=== PATIENT | male | born 1955 | race Caucasian/White ===

== ENCOUNTER 2016-09-30 16:12 | Emergency (ER) | payer OTHER ==
[2016-09-30 16:20] VITALS: BP 142/87
[2016-09-30] MEDS ORDERED: LIDOCAINE 1% 50 ML MDV SUBQ STA (16:49)
[2016-09-30] MEDS ORDERED: LIDOCAINE 1% 2 ML VIAL ONE (16:53)
--- NOTE | 2016-09-30 17:27 | ED Physician Documentation ---
PD HPI UPPER EXT INJURY - Stated complaint Stated Complaint: LT HAND LAC - Chief complaint Chief Complaint: Laceration - History obtained from History obtained from: Patient, Family - History of Present Illness Location: Left, Hand, Finger (3rd, 4th, 5th digits) Type of injury: Laceration Where injury occurred: Home Timing - onset: How many hours ago (1) Timing - duration: Hours (1) Timing - details: Abrupt onset Pain level max: 3 Pain level now: 1 Improved by: Rest Worsened by: Moving, Palpating Associated symptoms: No: Weakness, Numbness, Tingling, Swelling Contributing factors: No: Anticoagulated Similar symptoms before: Has not had sx before Recently seen: Not recently seen - Additonal information Additional information: unknown last Td. Pt is left handed. Cut on a lawnmower blade. Lawnmower was not running Review of Systems Neurologic: denies: Focal weakness, Numbness PD PAST MEDICAL HISTORY - Past Medical History Past Medical History: Yes Cardiovascular: Hypertension, High cholesterol Respiratory: Sleep apnea Endocrine/Autoimmune: Type 2 diabetes GI: None : None HEENT: None Psych: None Musculoskeletal: None Derm: None - Past Surgical History Past Surgical History: Yes General: Appendectomy Ortho: Other HEENT: Tonsil/Adenoidectomy - Present Medications Home Medications: Ambulatory Orders Medication Instructions Recorded Confirmed Aspirin [Josseline Chewable Aspirin] 81 mg PO DAILY 06/23/14 09/30/16 Insulin Glargine,Hum.rec.anlog 30 units SQ BID 06/23/14 09/30/16 [Lantus] Lisinopril 20 mg PO DAILY 06/23/14 09/30/16 metFORMIN [Glucophage] 1,000 mg PO BID 06/23/14 09/30/16 Atorvastatin [Lipitor] 80 mg PO DAILY 07/07/15 09/30/16 - Allergies Allergies/Adverse Reactions: Allergies Allergy/AdvReac Type Severity Reaction Status Date / Time No Known Drug Allergies Allergy Verified 09/30/16 16:20 - Social History Does the pt smoke?: No Smoking Status: Never smoker Does the pt drink ETOH?: No Does the pt have substance abuse?: No - Immunizations Immunizations are current?: No Immunizations: TDAP >10years/unknown PD ED PE NORMAL - Vitals Vital signs reviewed: Yes - General General: Alert and oriented X 3, No acute distress - HEENT HEENT: Moist mucous membranes - Derm Derm: Warm and dry - Extremities Extremities: Other (L hand - 3 lacerations to the 3rd, 4th, 5th digits. Middle phalanx. palmar aspect. NVI. 4th and 5th digits superficial laceartions. 3rd digit is 1.5cm in length, subcutaneous. tendon intact.) - Neuro Neuro: Alert and oriented X 3 - Psych Psych: Normal mood, Normal affect Results - Vitals Vitals: Vital Signs - 24 hr 09/30/16 16:18 Temperature 37.2 C Heart Rate 89 Respiratory 18 Rate Blood Pressure 142/87 H O2 Saturation 96 Oxygen O2 Source Room air Procedures - Laceration (location) L 3rd digit Length in cm: 1.5 Wound type: Linear, Into subcut fat, Clean Neurovascular status: Sensory intact, Motor intact, Vascular intact Tendon involvement: Tendon intact. No: Tendon Injury Anesthesia: Lidocaine 1% (transthecal block) Wound Preparation: Irrigated copiously NS, Wound explored, To the base. No: FB identified, FB removed Skin layer closure: Nylon, Interrupted, Size #-0 - enter number (4), Sutures - enter # (2) Other: Patient tolerated well, No complications, Neurovascular intact, Dressing applied, Tetanus booster given (tdap) Complexity: Simple PD MEDICAL DECISION MAKING - ED course Complexity details: re-evaluated patient, considered differential, d/w patient, d/w family ED course: Patient with a laceration to the left hand. Repaired. Tolerated well. Warnings of infection and instructions on wound care given at bedside. Also counseled on how to minimize scarring. Tdap given. Patient counseled regarding signs and symptoms for which I believe and urgent re-evaluation would be necessary. Patient with good understanding of and agreement to plan and is comfortable going home at this time This document was made in part using voice recognition software. While efforts are made to proofread this document, sound alike and grammatical errors may occur. Departure - Departure Disposition: 01 Home, Self Care Clinical Impression: Laceration of finger Qualifiers: Encounter type: initial encounter Qualified Code(s): S61.219A - Laceration without foreign body of unspecified finger without damage to nail, initial encounter Condition: Good Instructions: ED Laceration Hand Follow-Up: Caro Barr [facility] [Primary Care Provider] - Within 1 week Comments: Return if you worsen. The stiches should be removed in 10-14 days with your doctor. Discharge Date/Time: 09/30/16 17:35
== END 2016-09-30 17:35 | disposition home or self-care (01) ==
LOC: ED 16:12
DX: S61.213A Laceration without foreign body of left middle finger without damage to nail, initial encounter (principal); S61.215A Laceration without foreign body of left ring finger without damage to nail, initial encounter; S61.217A Laceration without foreign body of left little finger without damage to nail, initial encounter; W28.XXXA Contact with powered lawn mower, initial encounter; I10 Essential (primary) hypertension; E78.00 Pure hypercholesterolemia, unspecified; E11.9 Type 2 diabetes mellitus without complications; Z79.4 Long term (current) use of insulin; Z79.82 Long term (current) use of aspirin
CPT/HCPCS: 12001; 99283

== ENCOUNTER 2017-12-05 18:47 | Emergency (ER) | payer OTHER ==
--- NOTE | 2017-12-05 20:10 | ED Physician Documentation ---
History of Present Illness - Stated complaint Stated Complaint: DIZZINESS - Chief complaint Chief Complaint: Neuro - History obtained from History obtained from: Patient - History of Present Illness Timing: How many days ago (5) Improved by: rest/laying still Worsened by: movement of head, particularly to either side (turning) - Additonal information Additional information: Patient has two complaints. For the past five days, he has had dizziness that is distinctly worse when turning his head in either direction, associated with nausea but no vomiting. He also has a few days of episodic of abdominal cramping and vague discomfort around umbilicus. Review of Systems Constitutional: reports: Reviewed and negative Eyes: reports: Reviewed and negative Ears: reports: Reviewed and negative Nose: reports: Reviewed and negative Throat: reports: Reviewed and negative Cardiac: reports: Reviewed and negative Respiratory: reports: Reviewed and negative GI: reports: Abdominal Pain, Nausea, Constipation. denies: Vomiting : denies: Dysuria, Frequency PD PAST MEDICAL HISTORY - Past Medical History Cardiovascular: Hypertension, High cholesterol Respiratory: Sleep apnea Endocrine/Autoimmune: Type 2 diabetes GI: None : None HEENT: None Psych: None Musculoskeletal: None Derm: None - Past Surgical History Past Surgical History: Yes General: Appendectomy Ortho: Other HEENT: Tonsil/Adenoidectomy - Present Medications Home Medications: Ambulatory Orders Medication Instructions Recorded Confirmed Aspirin [Josseline Chewable Aspirin] 81 mg PO DAILY 06/23/14 09/30/16 Insulin Glargine,Hum.rec.anlog 30 units SQ BID 06/23/14 09/30/16 [Lantus] Lisinopril 20 mg PO DAILY 06/23/14 09/30/16 metFORMIN [Glucophage] 1,000 mg PO BID 06/23/14 09/30/16 Atorvastatin [Lipitor] 80 mg PO DAILY 07/07/15 09/30/16 Meclizine [Antivert] 25 mg PO Q6H PRN #20 tablet 12/05/17 Ondansetron Odt [Zofran] 4 mg TL Q6H PRN #20 tablet 12/05/17 diazePAM [Diazepam] 5 mg PO TID PRN #20 tablet 12/05/17 - Allergies Allergies/Adverse Reactions: Allergies Allergy/AdvReac Type Severity Reaction Status Date / Time No Known Drug Allergies Allergy Verified 09/30/16 16:20 - Social History Does the pt smoke?: No Smoking Status: Never smoker Does the pt drink ETOH?: No Does the pt have substance abuse?: No - Immunizations Immunizations are current?: No Immunizations: TDAP >10years/unknown PD ED PE NORMAL - Vitals Vital signs reviewed: Yes - General General: Alert and oriented X 3, No acute distress, Well developed/nourished - HEENT HEENT: PERRL, EOMI, Other (nystagmus with left lateral gaze) - Neck Neck: Supple, no meningeal sign - Cardiac Cardiac: RRR, No murmur - Respiratory Respiratory: No respiratory distress, Clear bilaterally - Abdomen Abdomen: Normal bowel sounds, Soft, Non tender, Non distended - Extremities Extremities: No edema - Neuro Neuro: Alert and oriented X 3, 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, No motor deficit, No sensory deficit, Normal speech Eye Opening: Spontaneous Motor: Obeys Commands Verbal: Oriented GCS Score: 15 Results - Vitals Vitals: Oxygen O2 Source Room air - EKG (time done) No standard instances Rate: Rate (enter#) (61) Rhythm: NSR [place]: Normal Intervals: Normal [place] QRS: Normal Ischemia: Normal ST segments - Labs Labs: Laboratory Tests 12/05/17 12/05/17 12/05/17 19:12 20:40 20:40 WBC 5.7 RBC 3.86 L Hgb 11.2 L Hct 33.4 L MCV 86.7 MCH 29.0 MCHC 33.5 RDW 13.3 Plt Count 235 MPV 8.0 Neut # (Auto) 3.8 Lymph # (Auto) 1.4 L [place] # (Auto) 0.4 Eos # (Auto) 0.0 Baso # (Auto) 0.0 Absolute Nucleated RBC 0.00 Nucleated RBC % 0.0 Sodium 138 Potassium 3.8 Chloride 105 Carbon Dioxide 29 Anion Gap 4.0 L BUN 14 Creatinine 0.6 Estimated GFR (MDRD) 136 Glucose 97 POC Whole Bld Glucose 103 H Calcium 9.6 Total Bilirubin 0.7 AST 28 ALT 41 Alkaline Phosphatase 82 Total Protein 7.0 Albumin 3.7 Globulin 3.3 Albumin/Globulin Ratio 1.1 Lipase 27 - Rads (name of study) abd. xrays Radiology: Prelim report reviewed, See rad report PD MEDICAL DECISION MAKING - ED course Complexity details: reviewed results, re-evaluated patient, considered differential, d/w patient - Sepsis Event Vital Signs: Oxygen O2 Source Room air Departure - Departure Disposition: 01 Home, Self Care Clinical Impression: Vertigo Constipation Qualifiers: Constipation type: unspecified constipation type Qualified Code(s): K59.00 - Constipation, unspecified Condition: Good Instructions: ED Constipation, Meclizine, ED Vertigo Unspecified Follow-Up: MUKESH WARD MD [Primary Care Provider] - Prescriptions: diazePAM [Diazepam] 5 mg PO TID PRN #20 tablet PRN Reason: Vertigo Meclizine [Antivert] 25 mg PO Q6H PRN #20 tablet PRN Reason: Vertigo Ondansetron Odt [Zofran] 4 mg TL Q6H PRN #20 tablet PRN Reason: Nausea / Vomiting Forms: Activity restrictions Discharge Date/Time: 12/05/17 22:20
[2017-12-05] MEDS ORDERED: MECLIZINE 12.5 MG TABLET PO STA (20:30)
[2017-12-05 20:53] LABS: BASOPHILS % (AUTO) 0.8 %; EOSINOPHILS % (AUTO) 0.9 %; HGB - HEMOGLOBIN 11.2 g/dL (14.0-18.0); LYMPHOCYTES # (AUTO) 1.4 10^3/uL (1.5-3.5); LYMPHOCYTES % (AUTO) 25.3 %; MEAN CORPUSCULAR HGB CONC 33.5 g/dL (32.0-36.0); MEAN CORPUSCULAR VOLUME 86.7 fL (80.0-94.0); MONOCYTES # (AUTO) 0.4 10^3/uL (0.0-1.0); MONOCYTES % (AUTO) 6.2 %; NEUTROPHILS # (AUTO) 3.8 10^3/uL (1.5-6.6); NEUTROPHILS % (AUTO) 66.8 %; PLT - PLATELET COUNT 235 10^3/uL (130-450); RED BLOOD COUNT 3.86 10^6/uL (4.70-6.10); RED CELL DISTRIBUTION WIDTH 13.3 % (12.0-15.0); WHITE BLOOD COUNT 5.7 x10^3/uL (4.8-10.8)
[2017-12-05 21:06] LABS: ALBUMIN 3.7 g/dL (3.2-5.5); ALBUMIN/GLOBULIN RATIO 1.1 (1.0-2.2); BILIRUBIN,TOTAL 0.7 mg/dL (0.2-1.0); CALCIUM 9.6 mg/dL (8.5-10.3); CREATININE 0.6 mg/dL (0.6-1.2)
--- NOTE | 2017-12-05 21:35 | XRAY Report ---
Procedure Date: 12/05/2017 Accession Number: [id number] / [id number] Procedure: XR - Abdomen Acute CPT Code: FULL RESULT: EXAM: ABDOMINAL SERIES AND PA CHEST EXAM DATE: 12/05/2017 09:17 PM. CLINICAL HISTORY: Abdominal pain, nausea and vomiting. COMPARISON: None. TECHNIQUE: 2 views abdomen and 1 view chest. FINDINGS: CHEST: Lungs/Pleura: No focal opacities. No effusion or pneumothorax. Mediastinum: Within exam limitations, cardiomediastinal contour is normal. ABDOMEN: Bowel Gas Pattern: Within normal limits. No dilated loops or abnormal fluid levels. Moderate stool in the ascending and descending colon. Free Air: None. Surgical clips in the right lower quadrant. IMPRESSION: Within normal limits. Moderate stool in the ascending and descending colon. RADIA
[2017-12-05 21:36] VITALS: BP 139/82
[2017-12-05] MEDS ORDERED: diazePAM 5 MG TABLET PO STA (21:57)
[2017-12-05] MEDS ORDERED: ONDANSETRON ODT 4 MG TABLET TL STA (21:57)
== END 2017-12-05 22:20 | disposition home or self-care (01) ==
LOC: ED 18:47
DX: K59.00 Constipation, unspecified (principal); R42 Dizziness and giddiness; I10 Essential (primary) hypertension; E11.9 Type 2 diabetes mellitus without complications; Z79.82 Long term (current) use of aspirin; Z79.4 Long term (current) use of insulin
CPT/HCPCS: 36415; 74022; 80053; 83690; 85025; 99283; A9270; Q0162

== ENCOUNTER 2017-12-31 14:25 | Outpatient (CLI) | payer OTHER ==
--- NOTE | 2018-01-01 18:23 | MRI Report ---
Reason: DIZZINESS AND GIDDINESS Procedure Date: 12/31/2017 Accession Number: [id number] / [id number] Procedure: MRI - Brain W/O CPT Code: FULL RESULT: EXAM: MRI BRAIN WITHOUT CONTRAST. EXAM DATE: 12/31/2017 04:25 PM. CLINICAL HISTORY: Dizziness and giddiness. COMPARISON: None. TECHNIQUE: Multiplanar, multisequence T1-weighted and fluid-sensitive MR sequences of the brain were performed. Sequences optimized for routine evaluation. Other: None. IV Contrast: None. FINDINGS: No cerebellar tonsillar ectopia is present. No restricted diffusion signal is identified in the brain parenchyma. Ventricles and sulci are within normal limits for the patient's age. No extra-axial fluid collection is seen. Punctate subcortical and deep white matter FLAIR hyperintensities are seen in the cerebral hemisphere white matter bilaterally. A 1.8 cm focus of FLAIR hyperintense signal seen involving the cortex and white matter of the posterior left parietal lobe. No definite volume loss is present in this region. This is best seen on image 18 of series 801. A linear focus in the inferior left cerebellum might reflect a remote ischemic event. No mass is present in either cerebellopontine angle. No soft tissue nodule is present in either internal auditory canal. The inner ear structures have a normal MRI appearance. IMPRESSION: 1. No acute CVA is present on the diffusion-weighted images. 2. The area of cortical FLAIR signal in the posterior left parietal lobe could reflect a subacute infarct in which diffusion signal has normalized. This is not particularly mass-like to suggest neoplasm. A follow-up MRI demonstrating development of volume loss in this region may be of value. 3. Small vessel ischemic change is present in the cerebral hemisphere white matter bilaterally. 4. Suspect a small remote ischemic event in the inferior left cerebellum. 5. No mass is present in either cerebellopontine angle or internal auditory canal. RADIA
== END 2017-12-31 14:26 | disposition home or self-care (01) ==
LOC: DI 14:25
PROVIDERS: ATTEND Internal Medicine
DX: R42 Dizziness and giddiness (principal)
CPT/HCPCS: 70551

== ENCOUNTER 2018-04-07 12:40 | Outpatient (CLI) | payer OTHER | END 2018-04-07 12:41 | disposition home or self-care (01) | LOC: DI 12:40 | PROVIDERS: ATTEND Internal Medicine | DX: I25.10 Atherosclerotic heart disease of native coronary artery without angina pectoris (principal) | CPT/HCPCS: 93306 ==

== ENCOUNTER 2018-10-14 18:09 | Emergency (ER) | payer OTHER ==
[2018-10-14 18:34] LABS: BASOPHILS % (AUTO) 0.3 %; EOSINOPHILS % (AUTO) 0.1 %; HGB - HEMOGLOBIN 12.8 g/dL (14.0-18.0); LYMPHOCYTES % (AUTO) 12.8 %; MEAN CORPUSCULAR HEMOGLOBIN 28.6 pg (27.0-31.0); MEAN CORPUSCULAR HGB CONC 33.1 g/dL (32.0-36.0); MEAN CORPUSCULAR VOLUME 86.4 fL (80.0-94.0); MONOCYTES # (AUTO) 0.4 10^3/uL (0.0-1.0); MONOCYTES % (AUTO) 4.7 %; NEUTROPHILS # (AUTO) 6.3 10^3/uL (1.5-6.6); NEUTROPHILS % (AUTO) 82.1 %; PLT - PLATELET COUNT 231 10^3/uL (130-450); RED BLOOD COUNT 4.49 10^6/uL (4.70-6.10); RED CELL DISTRIBUTION WIDTH 13.5 % (12.0-15.0); WHITE BLOOD COUNT 7.7 x10^3/uL (4.8-10.8)
[2018-10-14 18:37] LABS: VBG BASE EXCESS 3.7 mmol/L (-2 - +2); VBG PCO2 53.9 mmHg (41-51); VBG PH 7.368 (7.31-7.41); VBG PO2 30.5 mmHg (25-47)
[2018-10-14] MEDS ORDERED: PROMETHAZINE INJ 25 MG in SODIUM CHLORIDE 0.9% 50 ML IV STA (18:38)
[2018-10-14] MEDS ORDERED: SODIUM CHLORIDE 0.9% 1,000 ML IV ONE (18:38)
--- NOTE | 2018-10-14 18:41 | ED Physician Documentation ---
PD HPI FOCAL NEURO - Stated complaint Stated Complaint: VOMITING/DKA RULE OUT - Chief complaint Chief Complaint: Neuro - History obtained from History obtained from: Patient, Family () - History of Present Illness Timing - onset: Yesterday (This is a 63-year-old gentleman with diabetes who for many months has had recurrent vertigo. It was much worse yesterday causing vomiting. Feels like spinning and he is having difficulty focusing on his vision on things. He was unable to keep down any meclizine which has been helpful in the past. He saw his doctor today who referred him here for rule out for DKA thinking that might be the DKA that is causing the vomiting.) Review of Systems Ten Systems: 10 systems reviewed and negative Constitutional: denies: Fever, Chills Cardiac: denies: Chest pain / pressure, Palpitations Respiratory: denies: Dyspnea, Cough GI: denies: Abdominal Pain PD PAST MEDICAL HISTORY - Past Medical History Cardiovascular: Hypertension, High cholesterol Respiratory: Sleep apnea Endocrine/Autoimmune: Type 2 diabetes GI: None : None HEENT: None Psych: None Musculoskeletal: None Derm: None - Past Surgical History Past Surgical History: Yes General: Appendectomy Ortho: Other HEENT: Tonsil/Adenoidectomy - Present Medications Home Medications: Ambulatory Orders Medication Instructions Recorded Confirmed Aspirin [Josseline Chewable Aspirin] 81 mg PO DAILY 06/23/14 09/30/16 Insulin Glargine,Hum.rec.anlog 30 units SQ BID 06/23/14 09/30/16 [Lantus] Lisinopril 20 mg PO DAILY 06/23/14 09/30/16 metFORMIN [Glucophage] 1,000 mg PO BID 06/23/14 09/30/16 Atorvastatin [Lipitor] 80 mg PO DAILY 07/07/15 09/30/16 Meclizine [Antivert] 25 mg PO Q6H PRN #20 tablet 12/05/17 Ondansetron Odt [Zofran] 4 mg TL Q6H PRN #20 tablet 12/05/17 diazePAM [Diazepam] 5 mg PO TID PRN #20 tablet 12/05/17 Ondansetron Odt [Zofran] 4 mg TL Q6H PRN #10 tablet 10/14/18 - Allergies Allergies/Adverse Reactions: Allergies Allergy/AdvReac Type Severity Reaction Status Date / Time No Known Drug Allergies Allergy Verified 10/14/18 18:18 - Social History Does the pt smoke?: No Smoking Status: Never smoker Does the pt drink ETOH?: No Does the pt have substance abuse?: No - Immunizations Immunizations are current?: No Immunizations: TDAP >10years/unknown PD ED PE NORMAL - Vitals Vital signs reviewed: Yes - General General: Alert and oriented X 3, No acute distress - HEENT HEENT: PERRL, EOMI (Nystagmus on leftward gaze) - Neck Neck: Supple, no meningeal sign, No bony TTP - Cardiac Cardiac: RRR, No murmur - Respiratory Respiratory: No respiratory distress, Clear bilaterally - Abdomen Abdomen: Soft, Non tender - Back Back: No CVA TTP, No spinal TTP - Derm Derm: Normal color, Warm and dry - Extremities Extremities: No deformity, No tenderness to palpate - Neuro Neuro: Alert and oriented X 3, 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, Normal speech Eye Opening: Spontaneous Motor: Obeys Commands Verbal: Oriented GCS Score: 15 - Psych Psych: Normal mood NIHSS - Time Time: 18:35 - Level of Consciousness Level of consciousness: (0) Alert, Keenly responsive LOC Questions: (0) Answers both Q's correct LOC Commands: (0) Performs both correctly - Gaze Best Gaze: (0) Normal - Visual Visual: (0) No loss - Facial Palsy Facial Palsy: (0) Normal, symmetrical movement - Motor Arms (both separate) Motor Arm (right): (0) No drift Motor Arm (left): (0) No drift - Motor Legs (both separate) Motor Leg (right): (0) No drift Motor Leg (left): (0) No drift - Limb Ataxia Limb Ataxia: (0) Absent - Sensory Sensory: (0) Normal - Best Language Best Language: (0) No aphasia - Dysarthria Dysarthria: (0) Normal - Extinction and Inattention (formally neg Extinction and inattention: (0) No abnormality - Total Score/Results Total Score/Result: 0 Results - Vitals Vitals: Vital Signs - 24 hr 10/14/18 18:12 Temperature 37 C Heart Rate 82 Respiratory 16 Rate Blood Pressure 156/75 H O2 Saturation 100 Oxygen O2 Source Room air - Labs Labs: Laboratory Tests 10/14/18 10/14/18 10/14/18 18:16 18:30 18:30 WBC 7.7 RBC 4.49 L Hgb 12.8 L Hct 38.8 L MCV 86.4 MCH 28.6 MCHC 33.1 RDW 13.5 Plt Count 231 MPV 8.0 Neut # (Auto) 6.3 Lymph # (Auto) 1.0 L [place] # (Auto) 0.4 Eos # (Auto) 0.0 Baso # (Auto) 0.0 Absolute Nucleated RBC 0.00 Nucleated RBC % 0.1 VBG pH VBG pCO2 VBG pO2 VBG HCO3 VBG Total CO2 VBG O2 Saturation VBG Base Excess Sodium 140 Potassium 4.5 Chloride 100 L Carbon Dioxide 29 Anion Gap 11.0 BUN 18 Creatinine 0.7 Estimated GFR (MDRD) 114 Glucose 203 H POC Whole Bld Glucose 189 H Calcium 10.1 Phosphorus 3.8 Magnesium 2.2 Total Bilirubin 0.8 AST 34 ALT 57 Alkaline Phosphatase 63 Total Protein 7.8 Albumin 4.3 Globulin 3.5 Albumin/Globulin Ratio 1.2 Lipase 32 Serum Ketones NEGATIVE 10/14/18 18:30 WBC RBC Hgb Hct MCV MCH MCHC RDW Plt Count MPV Neut # (Auto) Lymph # (Auto) [place] # (Auto) Eos # (Auto) Baso # (Auto) Absolute Nucleated RBC Nucleated RBC % VBG pH 7.368 VBG pCO2 53.9 H VBG pO2 30.5 VBG HCO3 30.3 H VBG Total CO2 32.0 H VBG O2 Saturation 57.9 L VBG Base Excess 3.7 H Sodium Potassium Chloride Carbon Dioxide Anion Gap BUN Creatinine Estimated GFR (MDRD) Glucose POC Whole Bld Glucose Calcium Phosphorus Magnesium Total Bilirubin AST ALT Alkaline Phosphatase Total Protein Albumin Globulin Albumin/Globulin Ratio Lipase Serum Ketones PD MEDICAL DECISION MAKING - ED course ED course: 63-year-old gentleman with history of diabetes and recurrent vertigo presents with vertigo causing vomiting. Also prehospital concern for DKA for which there is there is no evidence of at work here. He was administered IV fluids and Phenergan followed by meclizine and Zofran with significant improvement in his vertigo and nausea. Departure - Departure Disposition: 01 Home, Self Care Clinical Impression: Vertigo Hyperglycemia due to type 2 diabetes mellitus Qualifiers: Diabetes mellitus terminal system operator insulin use: with terminal system operator use Qualified Code(s): E11.65 - Type 2 diabetes mellitus with hyperglycemia; Z79.4 - terminal system operator (current) use of insulin Condition: Good Record reviewed to determine appropriate education?: Yes Instructions: ED Vertigo Unspecified Prescriptions: Ondansetron Odt [Zofran] 4 mg TL Q6H PRN #10 tablet PRN Reason: Nausea / Vomiting Comments: Talk with your doctor about referral for an paid search analyst and vestibular physical therapy. Return for new worsening symptoms.
[2018-10-14 18:43] LABS: KETONES, SERUM (ACETEST) NEGATIVE (NEGATIVE)
[2018-10-14 18:48] LABS: ALBUMIN 4.3 g/dL (3.2-5.5); ALBUMIN/GLOBULIN RATIO 1.2 (1.0-2.2); ALKALINE PHOSPHATASE 63 IU/L (42-121); ALT ALANINE AMINOTRANSFERASE 57 IU/L (10-60); AST ASPARTATE AMINOTRANSFERASE 34 IU/L (10-42); BILIRUBIN,TOTAL 0.8 mg/dL (0.2-1.0); BUN - BLOOD UREA NITROGEN 18 mg/dL (6-20); CALCIUM 10.1 mg/dL (8.5-10.3); CARBON DIOXIDE - CO2 29 mmol/L (21-32); CHLORIDE 100 mmol/L (101-111); CREATININE 0.7 mg/dL (0.6-1.2); GFR - MDRD 114 (>89); GLUCOSE 203 mg/dL (70-100); LIPASE 32 U/L (22-51); MAGNESIUM 2.2 mg/dL (1.7-2.8); PHOSPHORUS 3.8 mg/dL (2.5-4.6); SODIUM 140 mmol/L (135-145); TOTAL PROTEIN 7.8 g/dL (6.7-8.2)
[2018-10-14] MEDS ORDERED: MECLIZINE 12.5 MG TABLET PO STA (19:44)
[2018-10-14] MEDS ORDERED: ONDANSETRON 4 MG/2 ML VIAL IVP STA (19:44)
[2018-10-14 20:46] VITALS: BP 129/80
== END 2018-10-14 20:54 | disposition home or self-care (01) ==
LOC: ED 18:09
DX: R42 Dizziness and giddiness (principal); R11.2 Nausea with vomiting, unspecified; E11.65 Type 2 diabetes mellitus with hyperglycemia; Z79.4 Long term (current) use of insulin; I10 Essential (primary) hypertension; Z79.82 Long term (current) use of aspirin
CPT/HCPCS: 36415; 80053; 82009; 82803; 83690; 83735; 84100; 85025; 96374; 96375; 99283; 99284; A9270; J7040

== ENCOUNTER 2018-11-11 14:46 | Emergency (ER) | payer OTHER ==
--- NOTE | 2018-11-11 16:27 | ED Physician Documentation ---
PD HPI BACK INJURY - Stated complaint Stated Complaint: BACK PAIN - History obtained from History obtained from: Patient - History of Present Illness Location: Lower Type of injury: Blunt / blow (He had the top part of a Hutch fall onto his left lower back and lower ribs when he was moving it as part of a job.) Where injury occurred: Work Timing - onset: How many hours ago (5 hours ago - about 10 am. He was carrying furniture and the top part of a hutch tipped over and fell onto hip lower left back, striking directly. Pain with ROM of the back and with palpation.), Today Timing - duration: Hours Timing - details: Abrupt onset, Still present Quality: Pain (mild to moderate except with certain movements.), Spasm Improved by: Rest Worsened by: Moving, Palpating Associated symptoms: No: Weakness, Numbness, Incontinent of urine Contributing factors: Work related Similar symptoms before: Has not had sx before Recently seen: Not recently seen Review of Systems Constitutional: denies: Fever, Chills, Myalgias Nose: denies: Rhinorrhea / runny nose, Congestion Throat: denies: Sore throat Cardiac: denies: Chest pain / pressure Respiratory: denies: Dyspnea, Cough GI: denies: Abdominal Pain, Nausea, Vomiting Skin: denies: Abrasion (s), Laceration (s) Musculoskeletal: reports: Back pain. denies: Neck pain Neurologic: denies: Focal weakness, Numbness PD PAST MEDICAL HISTORY - Past Medical History Cardiovascular: Hypertension, High cholesterol Respiratory: Sleep apnea Endocrine/Autoimmune: Type 2 diabetes GI: None : None HEENT: None Psych: None Musculoskeletal: None Derm: None - Past Surgical History Past Surgical History: Yes General: Appendectomy Ortho: Other HEENT: Tonsil/Adenoidectomy - Present Medications Home Medications: Ambulatory Orders Medication Instructions Recorded Confirmed Aspirin [Josseline Chewable Aspirin] 81 mg PO DAILY 06/23/14 09/30/16 Insulin Glargine,Hum.rec.anlog 30 units SQ BID 06/23/14 09/30/16 [Lantus] Lisinopril 20 mg PO DAILY 06/23/14 09/30/16 metFORMIN [Glucophage] 1,000 mg PO BID 06/23/14 09/30/16 Atorvastatin [Lipitor] 80 mg PO DAILY 07/07/15 09/30/16 Meclizine [Antivert] 25 mg PO Q6H PRN #20 tablet 12/05/17 Ondansetron Odt [Zofran] 4 mg TL Q6H PRN #20 tablet 12/05/17 diazePAM [Diazepam] 5 mg PO TID PRN #20 tablet 12/05/17 Ondansetron Odt [Zofran] 4 mg TL Q6H PRN #10 tablet 10/14/18 Acetaminophen [Tylenol] 650 mg PO Q6H PRN #30 tab 11/11/18 Methocarbamol [Robaxin] 500 mg PO Q6H PRN #20 tablet 11/11/18 Naproxen 500 mg PO BID #20 tablet 11/11/18 - Allergies Allergies/Adverse Reactions: Allergies Allergy/AdvReac Type Severity Reaction Status Date / Time No Known Drug Allergies Allergy Verified 11/11/18 15:00 - Social History Does the pt smoke?: No Smoking Status: Never smoker Does the pt drink ETOH?: No Does the pt have substance abuse?: No - Immunizations Immunizations are current?: No Immunizations: TDAP >10years/unknown PD ED PE NORMAL - Vitals Vital signs reviewed: Yes - General General: Alert and oriented X 3, No acute distress, Well developed/nourished - HEENT HEENT: Atraumatic - Neck Neck: Supple, no meningeal sign, No bony TTP, No adenopathy - Cardiac Cardiac: RRR, No murmur - Respiratory Respiratory: Clear bilaterally - Abdomen Abdomen: Soft, Non tender - Back Back: No spinal TTP, Other (tender left lateral back at thoracolumbar area, at lower ribs and lateral process area of upper lumbar. No bruising at this time. Soft tissue tenderness. ) - Derm Derm: Normal color, Warm and dry - Extremities Extremities: Normal ROM s pain - Neuro Neuro: Alert and oriented X 3, No motor deficit, No sensory deficit, Normal speech Results - Vitals Vitals: Vital Signs - 24 hr 11/11/18 11/11/18 14:58 18:43 Temperature 36.5 C Heart Rate 98 83 Respiratory 18 18 Rate Blood Pressure 192/89 H 137/92 H O2 Saturation 100 100 Oxygen O2 Source Room air - Rads (name of study) abd CT Radiology: Prelim report reviewed (no organ injury of kidney/lung. No fractures seen. ), EMP read contemporaneously, See rad report PD MEDICAL DECISION MAKING - ED course Complexity details: reviewed results, considered differential (mechanism of heavy direct blow concerning for rib/lateral process and also organ (kidney/ lower lung) injury, so got CT. ), d/w patient Departure - Departure Disposition: 01 Home, Self Care Clinical Impression: Back contusion Qualifiers: Encounter type: initial encounter Laterality: left Qualified Code(s): S20.222A - Contusion of left back wall of thorax, initial encounter Condition: Stable Record reviewed to determine appropriate education?: Yes Instructions: ED Contusion Back Follow-Up: MUKESH WARD MD [Primary Care Provider] - Prescriptions: Acetaminophen [Tylenol] 650 mg PO Q6H PRN #30 tab PRN Reason: Pain Methocarbamol [Robaxin] 500 mg PO Q6H PRN #20 tablet PRN Reason: Spasms Naproxen 500 mg PO BID #20 tablet Comments: Cool towels or ice to the area periodically tonight for swelling and then heat starting tomorrow for stiffness. No heavy lifting or push pull for 2 to 3 days. Naproxen anti-inflammatory twice daily for the next week or so. Add Tylenol if needed for pains. Add methocarbamol if needed for muscle spasms. Recheck if not better over the next several days to week. Forms: Activity restrictions Discharge Date/Time: 11/11/18 18:51
[2018-11-11] MEDS ORDERED: IBUPROFEN 600 MG TABLET PO STA (17:01)
[2018-11-11] MEDS ORDERED: ACETAMINOPHEN 325 MG TABLET PO STA (17:02)
--- NOTE | 2018-11-11 18:11 | CT Report ---
Reason: furniture piece fell onto left lower ribs/flank Procedure Date: 11/11/2018 Accession Number: [id number] / [id number] Procedure: CT - Abdomen/Pelvis WO CPT Code: FULL RESULT: EXAM: CT ABDOMEN AND PELVIS EXAM DATE: 11/11/2018 05:41 PM. CLINICAL HISTORY: Furniture piece fell onto left lower ribs/flank. COMPARISONS: None. TECHNIQUE: Routine axial helical CT imaging was performed through the abdomen and pelvis without IV contrast. Reconstructions: Coronal and sagittal. In accordance with CT protocol optimization, one or more of the following dose reduction techniques were utilized for this exam: automated exposure control, adjustment of mA and/or KV based on patient size, or use of iterative reconstructive technique. FINDINGS: Lung Bases: Unremarkable. Abdominal Organs: Noncontrast images of the abdominal organs are grossly unremarkable. Gallbladder/bile ducts: No significant abnormalities. Peritoneal Cavity: No free fluid, free air or mely adenopathy. Bowel is grossly unremarkable. Pelvic Organs: The prostate is enlarged. It measures 5.5 cm in AP diameter. No acute pelvic organ abnormalities are seen. Vasculature: Unremarkable. Other: None. IMPRESSION: Negative noncontrast CT of the abdomen and pelvis.
[2018-11-11 18:43] VITALS: BP 137/92
== END 2018-11-11 18:51 | disposition home or self-care (01) ==
LOC: ED 14:46
DX: S20.222A Contusion of left back wall of thorax, initial encounter (principal); W20.8XXA Other cause of strike by thrown, projected or falling object, initial encounter; Y93.89 Activity, other specified; Y99.0 Civilian activity done for income or pay; I10 Essential (primary) hypertension; E11.9 Type 2 diabetes mellitus without complications; Z79.4 Long term (current) use of insulin
CPT/HCPCS: 74176; 99283; 99284; A9270; 1040M

== ENCOUNTER 2019-11-15 20:05 | Emergency (ER) | payer OTHER ==
[2019-11-15 20:14] VITALS: BP 150/78
[2019-11-15] MEDS ORDERED: CLINDAMYCIN 150 MG CAPSULE PO STA (20:28)
--- NOTE | 2019-11-15 20:38 | ED Physician Documentation ---
History of Present Illness - Stated complaint Stated Complaint: LT PERALES LAC - Chief complaint Chief Complaint: Laceration - History obtained from History obtained from: Patient - History of Present Illness Timing: How many weeks ago (1.5) Pain level max: 3 Pain level now: 2 - Additonal information Additional information: Patient scraped his left perales on a wooden pallet at work. Increasing redness, swelling and drainage recently. Concerned about infection. He is diabetic and has peripheral vascular disease. Nothing makes it better or worse. No fevers. Review of Systems Constitutional: denies: Fever, Chills Respiratory: denies: Cough GI: denies: Nausea, Vomiting, Diarrhea : denies: Dysuria Musculoskeletal: denies: Neck pain, Back pain Neurologic: denies: Headache PD PAST MEDICAL HISTORY - Past Medical History Past Medical History: Yes Cardiovascular: Hypertension, High cholesterol Respiratory: Sleep apnea Endocrine/Autoimmune: Type 2 diabetes GI: None : None HEENT: None Psych: None Musculoskeletal: None Derm: None - Past Surgical History Past Surgical History: Yes General: Appendectomy Ortho: Other HEENT: Tonsil/Adenoidectomy - Present Medications Home Medications: Ambulatory Orders Medication Instructions Recorded Confirmed Aspirin [Josseline Chewable Aspirin] 81 mg PO DAILY 06/23/14 09/30/16 Insulin Glargine,Hum.rec.anlog 30 units SQ BID 06/23/14 09/30/16 [Lantus] lisinopriL [Lisinopril] 20 mg PO DAILY 06/23/14 09/30/16 metFORMIN [Glucophage] 1,000 mg PO BID 06/23/14 09/30/16 Atorvastatin [Lipitor] 80 mg PO DAILY 07/07/15 09/30/16 Meclizine [Antivert] 25 mg PO Q6H PRN #20 tablet 12/05/17 Ondansetron Odt [Zofran] 4 mg TL Q6H PRN #20 tablet 12/05/17 diazePAM [Diazepam] 5 mg PO TID PRN #20 tablet 12/05/17 Ondansetron Odt [Zofran] 4 mg TL Q6H PRN #10 tablet 10/14/18 Acetaminophen [Tylenol] 650 mg PO Q6H PRN #30 tab 11/11/18 Naproxen 500 mg PO BID #20 tablet 07/08/19 methocarbamoL [Robaxin] 500 mg PO Q6H PRN #20 tablet 11/11/18 Clindamycin HCl [Clindamycin 300MG 300 mg PO Q6H #28 capsule 11/15/19 CAP] - Allergies Allergies/Adverse Reactions: Allergies Allergy/AdvReac Type Severity Reaction Status Date / Time No Known Drug Allergies Allergy Verified 11/15/19 20:10 - Social History Does the pt smoke?: No Smoking Status: Never smoker Does the pt drink ETOH?: No Does the pt have substance abuse?: No - Immunizations Immunizations are current?: No Immunizations: TDAP >10years/unknown PD ED PE NORMAL - Vitals Vital signs reviewed: Yes - General General: Alert and oriented X 3, No acute distress - HEENT HEENT: Moist mucous membranes - Neck Neck: Supple, no meningeal sign - Cardiac Cardiac: RRR - Respiratory Respiratory: No respiratory distress, Clear bilaterally - Extremities Extremities: Other (L perales - 16 cm abrasion with surrounding erythema approximately 3 cm in all directions. No drainage. No swelling. Warmth is present.) - Neuro Neuro: Alert and oriented X 3 Results - Vitals Vitals: Vital Signs - 24 hr 11/15/19 20:10 Temperature 37 C Heart Rate 92 Respiratory 18 Rate Blood Pressure 150/78 H O2 Saturation 95 Oxygen O2 Source Room air PD MEDICAL DECISION MAKING - ED course Complexity details: reviewed results, considered differential, d/w patient, d/w family ED course: Patient with a left lower extremity cellulitis from an abrasion. We will place on clindamycin. He is well-appearing, nontoxic. Afebrile. Concern about Bactrim interacting with his lisinopril. Tetanus is up-to-date. Patient counseled that he will need to follow-up closely with his doctor. Patient counseled regarding signs and symptoms for which I believe and urgent re- evaluation would be necessary. Patient with good understanding of and agreement to plan and is comfortable going home at this time This document was made in part using voice recognition software. While efforts are made to proofread this document, sound alike and grammatical errors may occur. Departure - Departure Disposition: 01 Home, Self Care Clinical Impression: Leg abrasion, infected Qualifiers: Encounter type: initial encounter Laterality: left Qualified Code(s): S80.812A - Abrasion, left lower leg, initial encounter Cellulitis Qualifiers: Site of cellulitis: extremity Site of cellulitis of extremity: lower extremity Laterality: left Qualified Code(s): L03.116 - Cellulitis of left lower limb Condition: Good Instructions: ED Abrasion, ED Infec Skin Cellulitis Follow-Up: Your,doctor in 1 week [Other] Prescriptions: Clindamycin HCl [Clindamycin 300MG CAP] 300 mg PO Q6H #28 capsule Comments: It is importantly follow-up with your doctor within the next week for a wound check. Because of your diabetes, you may need wound care to help this heal. This could take several months to heal.
[2019-11-15] MEDS ORDERED: BACITRACIN ZINC OINT 1 PACKET TOP STA (20:41)
== END 2019-11-15 20:49 | disposition home or self-care (01) ==
LOC: ED 20:05
DX: S80.812A Abrasion, left lower leg, initial encounter (principal); L03.116 Cellulitis of left lower limb; W22.8XXA Striking against or struck by other objects, initial encounter; Y92.89 Other specified places as the place of occurrence of the external cause; Y99.0 Civilian activity done for income or pay; E11.51 Type 2 diabetes mellitus with diabetic peripheral angiopathy without gangrene; Z79.4 Long term (current) use of insulin
CPT/HCPCS: 99282; 99284; A9270; 1040M

== ENCOUNTER 2022-05-16 22:19 | Emergency (ER) | payer MEDICARE, OTHER ==
[2022-05-17] MEDS ORDERED: ONDANSETRON 4 MG/2 ML VIAL IVP STA (00:06)
--- NOTE | 2022-05-17 00:06 | ED Physician Documentation ---
PD HPI ABD PAIN - Stated complaint Stated Complaint: CONSTIPATED - Chief complaint Chief Complaint: Abd Pain - History obtained from History obtained from: Patient - History of Present Illness Timing - onset: Enter time (17:00), Today Timing - details: Abrupt onset, Constant, Waxing and waning Pain level now: 10 Quality: Pain Location: LLQ Radiation: Left flank Improved by: Other (nothing) Worsened by: Other (no exacerbating factors) Associated symptoms: Nausea, Vomiting, Constipation. No: Fever, Diarrhea Similar symptoms before: Has not had sx before Recently seen: Not recently seen - Additional information Additional information: HPI from patient. Patient is in severe pain and thus patient's , at bedside in ED, also provides some HPI/ROS information. Patient c/o sudden onset left-sided abdominal pain , began approximately 5 PM today while at home at rest. Pain is severe, waxing and waning but without apparent inciting event, exacerbating/ameliorating factors. He has nausea and vomiting that correlates with the most severe pain. He also notes that he feels he has been constipated , with last BM 2 days ago. Additionally, patient feels urge to urinate but unable to urinate more than very small amount at a time. This last symptom began subsequent to the onset of the abdominal pain. Patient denies h/o similar abdominal pain in past. Review of Systems Constitutional: denies: Fever, Chills, Sweats Cardiac: reports: Reviewed and negative Respiratory: reports: Reviewed and negative GI: reports: Abdominal Pain, Abdominal Swelling, Nausea, Vomiting, Constipation. denies: Diarrhea, Hematemesis, Bloody / black stool : reports: Unable to Void. denies: Dysuria, Frequency, Hematuria Musculoskeletal: denies: Back pain PD PAST MEDICAL HISTORY - Past Medical History Cardiovascular: Hypertension, High cholesterol Respiratory: Sleep apnea Endocrine/Autoimmune: Type 2 diabetes GI: None : None HEENT: None Psych: None Musculoskeletal: None Derm: None - Past Surgical History Past Surgical History: Yes General: Appendectomy Ortho: Other HEENT: Tonsil/Adenoidectomy - Present Medications Home Medications: Ambulatory Orders Medication Instructions Recorded Confirmed Aspirin [Josseline Chewable Aspirin] 81 mg PO DAILY 06/23/14 09/30/16 Insulin Glargine,Hum.rec.anlog 30 units SQ BID 06/23/14 09/30/16 [Lantus] lisinopriL [Lisinopril] 20 mg PO DAILY 06/23/14 09/30/16 metFORMIN [Glucophage] 1,000 mg PO BID 06/23/14 09/30/16 Atorvastatin [Lipitor] 80 mg PO DAILY 07/07/15 09/30/16 Meclizine [Antivert] 25 mg PO Q6H PRN #20 tablet 12/05/17 Ondansetron Odt [Zofran] 4 mg TL Q6H PRN #20 tablet 12/05/17 diazePAM [Diazepam] 5 mg PO TID PRN #20 tablet 12/05/17 Ondansetron Odt [Zofran] 4 mg TL Q6H PRN #10 tablet 10/14/18 Acetaminophen [Tylenol] 650 mg PO Q6H PRN #30 tab 11/11/18 Naproxen 500 mg PO BID #20 tablet 11/11/18 methocarbamoL [Robaxin] 500 mg PO Q6H PRN #20 tablet 11/11/18 Clindamycin HCl [Clindamycin 300MG 300 mg PO Q6H #28 capsule 11/15/19 CAP] - Allergies Allergies/Adverse Reactions: Allergies Allergy/AdvReac Type Severity Reaction Status Date / Time No Known Drug Allergies Allergy Verified 05/16/22 22:33 - Social History Does the pt smoke?: No Smoking Status: Never smoker Does the pt drink ETOH?: No Does the pt have substance abuse?: No - Immunizations Immunizations are current?: No Immunizations: TDAP >10years/unknown PD ED PE NORMAL - Vitals Vital signs reviewed: Yes - General General: Alert and oriented X 3, Well developed/nourished, Other (obvious signficant painful distress) - Neck Neck: Supple, no meningeal sign - Cardiac Cardiac: RRR - Respiratory Respiratory: No respiratory distress, Clear bilaterally - Abdomen Abdomen: Normal bowel sounds, Soft, Other (mild distention. no palpable masses/hernia. well-healed surgical scars noted. TTP is limited to left abdomen; unclear if palpation is exacerbating pain that is clearly present before and after abdominal exam (reports increased pain w/ palpation but obvious severe painful distress before/after exam)) - Back Back: No CVA TTP - Derm Derm: Normal color, Warm and dry Results - Vitals Vitals: Vital Signs - 24 hr 05/17/22 05/17/22 01:51 05:45 Heart Rate 81 70 Respiratory 16 17 Rate Blood Pressure 169/80 H 139/72 H O2 Saturation 100 98 If not protocol 2 : Oxygen Flow, liters/minute Oxygen O2 Source Nasal cannula - Labs Labs: Laboratory Tests 05/16/22 05/16/22 05/17/22 23:53 23:53 00:22 WBC 11.5 H RBC 4.41 L Hgb 12.1 L Hct 37.9 L MCV 85.9 MCH 27.4 MCHC 31.9 L RDW 12.5 Plt Count 218 MPV 10.4 Neut # (Auto) 9.9 H Lymph # (Auto) 1.0 L Meagher # (Auto) 0.5 Eos # (Auto) 0.0 Baso # (Auto) 0.1 Absolute Nucleated RBC 0.00 Nucleated RBC % 0.0 Sodium 132 L Potassium 5.0 Chloride 99 L Carbon Dioxide 21 Anion Gap 12.0 BUN 27 H Creatinine 0.9 Estimated GFR (MDRD) 84 L Glucose 222 H Calcium 9.9 Total Bilirubin 0.9 AST 33 ALT 36 Alkaline Phosphatase 92 Total Protein 7.9 Albumin 4.5 Globulin 3.4 Albumin/Globulin Ratio 1.3 Lipase 33 Urine Color YELLOW Urine Clarity CLEAR Urine pH 6.0 Ur Specific [place] <=1.005 Urine Protein TRACE Urine Glucose (UA) 250 H Urine Ketones TRACE Urine Occult Blood MODERATE H Urine Nitrite NEGATIVE Urine Bilirubin NEGATIVE Urine Urobilinogen 0.2 (NORMAL) Ur Leukocyte Esterase NEGATIVE Urine RBC 6-10 H Urine WBC 0-3 Ur Squamous Epith Cells NONE SEEN Urine Bacteria None Seen Ur Microscopic Review INDICATED Urine Culture Comments NOT INDICATED - Rads (name of study) CT A/P with IV contrast Radiology: Prelim report reviewed, Final report received, EMP read indepedently, See rad report PD Medical Decision Making - ED course Complexity details: reviewed results, re-evaluated patient, considered differential, d/w patient ED course: Tests ordered and results reviewed by me: CBC, ER abdominal panel, UA, CT A/P with IV contrast. There are no concerning findings on the CBC nor ER abdominal panel ( hyperglycemia 222, mildly elevated BUN with normal creatinine, minimal leukocytosis). UA is positive for blood on macro, RBC on micro without other contributory findings. CT A/P shows mild/moderate left hydronephrosis and hydroureter without evidence of renal calculus. Also noted is moderate amount of stool impacted in rectum. Patient given 1mg IV dilaudid and 4mg IV zofran as well as 1 liter NS IV. He reports excellent symptom relief with the medications and is in NAD on reevaluation; his pain, as well as his nausea/vomiting, did not reoccur through remainder of ED stay. Early in stay, ED RN performed bedside bladder scan , noting result of 800cc in bladder. Camacho catheter placed by ED RN and there was rapid return of 1,000cc clear yellow urine. This did not seem to correlate with significant pain relief, which subsequently was achieved rapidly after the IV dilaudid was given. I discussed results with patient. He says he has felt constipated past 1-2 days and notes that since earlier today, he feels stool at the anal verge that won't pass; this correlates with the finding on CT. He tried glycerin suppository tonight but could barely insert it due to the obstructing stool. I thus tried manual disempaction but was only able to remove a small amount of stool (even with bearing down , most of the stool was not within fingers-length for removal). He is given fleets enema and 15cc MOM to take/use once he gets home. I suspect patient's pain was predominantly, possibly entirely, from renal colic and with his complete and sustained relief of symptoms after only 1mg IV dilaudid, a likely scenario is he passed an obstructing left distal ureteral stone sometime between presentation and the CT being performed. He provided a very small amount (perhaps 30 cc) of urine before the camacho was placed, and this sample remains at bedside; I do not see any calculus in this sample. Unfortunately, the camacho bag was emptied at least once between the time it was placed and the time I reevaluated patient; on reevaluation, I do not see evidence of a calculus in the camacho collection system. In the scenario of a stone that was passed in the above timeframe, it likely would have been in the camacho bag and emptied when the bag was drained by ED RN. Camacho removed prior to d/c, as prostatic enlargement causing urinary retention is, at this point, less likely than bladder spasm from distal ureteral stone, possibly contributing factor of fecal impaction as well. Departure - Departure Disposition: 01 Home, Self Care Clinical Impression: Fecal impaction, Urinary retention Hydronephrosis Qualifiers: Hydronephrosis type: unspecified Qualified Code(s): N13.30 - Unspecified hydronephrosis Condition: Good Instructions: ED Constipation, ED Impaction Fecal Treated Comments: Your CAT scan shows swelling of the left kidney and the left ureter (the tube like connection from the kidney to the bladder). You also had some blood in the urine when it was tested by the lab. Given the combination of left-sided abdominal pain of sudden onset, and the blood detected in urine, combined with the findings on the CT scan, the most likely explanation for these findings and symptoms is a blockage of the left ureter and kidney. And the most likely cause of such a blockage would be a kidney stone. However, no kidney stone was seen on the CT scan. As we discussed, the most likely explanation would be that you had a kidney stone that was blocking when you first arrived in the emergency department, but that you passed the kidney stone before the CAT scan was performed. In such a case, the swelling of the kidney and ureter typically takes up to a day or more to resolve even after the stone has passed. The CAT scan also showed a large amount of stool that is impacted in the rectum. While this could account for abdominal pain, ice suspect this was not the primary cause of your pain but rather the blockage of the left ureter and kidney was the cause of the pain. Both the large amount of stool in the rectum as well as a kidney stone if it were near the bladder can cause spasm of the bladder, which, in turn, can lead to retention of the urine. As we discussed, since no kidney stone was visualized on the CAT scan, it is important that you follow-up with your primary care provider, as they might recommend further testing and/or consultation with a urologist. This is because there are other potential causes of the CAT scan findings regarding your kidney and ureter and the blood in the urine, and, though very unlikely, a mass not visualized on tonight's CAT scan would still be a possibility, and other tests can be performed to investigate that possibility. You have been provided with a fleets enema and some milk of magnesia. I recommend using both of these as soon as you get home. Hopefully, this results in a large amount of stool output. Discharge Date/Time: 05/17/22 06:39
[2022-05-17] MEDS ORDERED: HYDROmorphone 1 MG/ML CARPUJECT IVP STA (00:13)
[2022-05-17] MEDS ORDERED: SODIUM CHLORIDE 0.9% 1,000 ML IV STA (00:14)
[2022-05-17] MEDS ORDERED: SODIUM CHLORIDE 0.9% 500 ML IV STA (00:14)
[2022-05-17] MEDS ORDERED: iohexoL-300 100 ML VIAL ONE (00:18)
[2022-05-17 00:28] LABS: BASOPHILS # (AUTO) 0.1 10^3/uL (0.0-0.1); BASOPHILS % (AUTO) 0.4 %; EOSINOPHILS % (AUTO) 0.2 %; HCT - HEMATOCRIT 37.9 % (42.0-52.0); HGB - HEMOGLOBIN 12.1 g/dL (14.0-18.0); LYMPHOCYTES % (AUTO) 8.5 %; MEAN CORPUSCULAR HEMOGLOBIN 27.4 pg (27.0-31.0); MEAN CORPUSCULAR HGB CONC 31.9 g/dL (32.0-36.0); MEAN CORPUSCULAR VOLUME 85.9 fL (80.0-94.0); MEAN PLATELET VOLUME 10.4 fL (7.4-11.4); MONOCYTES # (AUTO) 0.5 10^3/uL (0.0-1.0); NEUTROPHILS # (AUTO) 9.9 10^3/uL (1.5-6.6); NEUTROPHILS % (AUTO) 86.6 %; PLT - PLATELET COUNT 218 10^3/uL (130-450); RED BLOOD COUNT 4.41 10^6/uL (4.70-6.10); RED CELL DISTRIBUTION WIDTH 12.5 % (12.0-15.0); WHITE BLOOD COUNT 11.5 x10^3/uL (4.8-10.8)
[2022-05-17 00:38] LABS: ALBUMIN 4.5 g/dL (3.2-5.5); ALBUMIN/GLOBULIN RATIO 1.3 (1.0-2.2); BILIRUBIN,TOTAL 0.9 mg/dL (0.2-1.0); CALCIUM 9.9 mg/dL (8.5-10.3); CREATININE 0.9 mg/dL (0.6-1.2); TOTAL PROTEIN 7.9 g/dL (6.7-8.2)
[2022-05-17 00:43] LABS: BILIRUBIN,URINE NEGATIVE (NEGATIVE); GLUCOSE, URINE (UA) 250 mg/dL (NEGATIVE); KETONES,URINE (UA) TRACE mg/dL (NEGATIVE); LEUKOCYTE ESTERASE, URINE NEGATIVE (NEGATIVE); NITRITE,URINE NEGATIVE (NEGATIVE); OCCULT BLOOD,URINE MODERATE (NEGATIVE); PROTEIN,URINE TRACE mg/dL (NEGATIVE); UROBILINOGEN,URINE 0.2 (NORMAL) E.U./dL (NORMAL)
[2022-05-17 00:48] LABS: CLARITY,URINE CLEAR (CLEAR)
[2022-05-17 00:55] LABS: BACTERIA,URINE None Seen /HPF (None Seen); SQUAMOUS EPITHELIAL CELL,UR NONE SEEN (<= Few); WBC,URINE 0-3 /HPF (0-3)
[2022-05-17] MEDS ORDERED: iohexoL-300 100 ML VIAL IVP ONE (01:39)
--- NOTE | 2022-05-17 02:16 | CT Report ---
PROCEDURE: ABDOMEN/PELVIS W INDICATIONS: abdominal pain CONTRAST: Omni 300 100ml TECHNIQUE: After the administration of intravenous contrast, 5 mm thick sections acquired from the diaphragms to the symphysis. 5 mm thick coronal and sagittal reformats were acquired. For radiation dose reducti on, the following was used: automated exposure control, adjustment of mA and/or kV according to david ent size. COMPARISON: CT abdomen pelvis 11/11/2018. FINDINGS: Image quality: Excellent. Lung bases:There is mild dependent atelectasis bilaterally. Heart: Heart is normal in size. There is a small hiatal hernia. ABDOMEN: Liver: No mass lesion. Gallbladder: Within normal limits without calcified gallstones. Biliary ducts: No biliary ductal dilatation. Pancreas: Unremarkable. Spleen: Normal in size. Adrenal Glands: No adrenal nodules. Kidneys and Ureters:There is mild left hydroureteronephrosis with study to bladder without a discret e obstructing stone visualized. There is associated mild left perinephric and perirenal fat stranding as well as a delayed left nephrogram. There is no right hydronephrosis. No discrete renal stones. A few small cysts are demonstrated in the kidneys as well as smaller left low-density foci which are to o small to characterize but likely represent cysts. Stomach and Bowel: Stomach and small bowel loops are normal in caliber and wall thickness. There are postsurgical changes at the ileocecal junction. There is moderate stool distention of the rectosigmo id colon. Peritoneum: No abnormal intraperitoneal fluid. No free air. Ventral Wall: No hernia. Abdominal Nodes: No retroperitoneal or mesenteric adenopathy by size criteria. Vessels: Aorta and inferior vena cava are normal in size. PELVIS: Pelvic Organs:There is moderate enlargement of the prostate. Bladder:There is a Nava catheter within a nondistended urinary bladder. Pelvic Nodes: No enlarged lymph nodes. Miscellaneous: No inguinal hernias. Bones: Visualized osseous structures demonstrate no suspicious lesions. IMPRESSION: 1. Mild left hydroureteronephrosis extending to the bladder without a discrete obstructing stone visu alized. The findings may reflect sequelae of a recently passed stone or a nonvisualized obstructing s oft tissue lesion. Recommend clinical follow-up and consider further evaluation with CT IVP if indica ra. 2. Moderate stool distention of the rectosigmoid colon may reflect constipation or stool impaction. . Reviewed by: Hector Rivero MD on 05/17/2022 2:25 AM PST Approved by: Hector Rivero MD on 05/17/2022 2:25 AM PST Station ID: [id number]
[2022-05-17 05:46] VITALS: BP 139/72
[2022-05-17] MEDS ORDERED: MINERAL OIL ENEMA 133 ML BOTTLE RC STA (05:52)
[2022-05-17] MEDS ORDERED: MAGNESIUM HYDROXIDE 2,400 MG/30 ML UDC PO STA (05:52)
== END 2022-05-17 06:39 | disposition home or self-care (01) ==
LOC: ED 22:19
DX: K56.41 Fecal impaction (principal); R33.9 Retention of urine, unspecified; N13.30 Unspecified hydronephrosis; R31.9 Hematuria, unspecified
CPT/HCPCS: 36415; 74177; 80053; 81001; 83690; 85025; 96361; 96374; 96375; 99284; A9270; J1170; Q9967; 81003; 87086

== ENCOUNTER 2023-12-03 08:00 | Outpatient (CLI) | payer MEDICARE, OTHER | END 2023-12-03 23:59 | disposition home or self-care (01) | LOC: LAB.N 08:00 | PROVIDERS: ATTEND Nurse Practitioner | DX: L08.9 Local infection of the skin and subcutaneous tissue, unspecified (principal) | CPT/HCPCS: 87070; 87205 ==